=== PATIENT | male | born 1970 | race Caucasian/White ===

== ENCOUNTER 2023-01-29 08:47 | Outpatient (CLI) | payer OTHER, SELFPAY ==
--- NOTE | ~2023-01-29 | CT_ITS ---
EXAMINATION: CT abdomen pelvis wo con DATE: 01/29/2023 09:09 INDICATION: Epigastric pain TECHNIQUE: Computed tomography (CT) of the abdomen and pelvis was performed without intravenous contr ast. The dose-length product (DLP) was 845.48 mGy-cm. Automated exposure control and iterative recons truction technique were employed. COMPARISON: None FINDINGS: Minimal dependent atelectasis is present in the lung bases. The heart size is normal. There is a moderate sized diverticulum of the posterior gastric fundus. The liver, spleen, pancreas, gallb ladder, and adrenal glands are normal. The kidneys are unremarkable. No pathologically enlarged abdom inal or pelvic lymph nodes are identified. No free intraperitoneal gas or evidence of bowel obstructi on. The appendix is normal. There is mild lumbar spondylosis. A small umbilical hernia containing fat is noted. IMPRESSION: 1. Moderate sized diverticulum of the gastric fundus. Reviewed, dictated and finalized at location B.
== END 2023-01-29 08:48 | disposition home or self-care (01) ==
LOC: CHSIMG 08:51
PROVIDERS: PCP Physician Assistant; Visit Provider Physician Assistant
DX: R10.9 Unspecified abdominal pain (principal)
CPT/HCPCS: 74176